=== PATIENT | female | born 1995 | race Caucasian/White ===

== ENCOUNTER 2022-12-30 16:38 | Emergency (ER) | payer OTHER ==
[~2022-12-30] VITALS: Ht 162.6 cm; Wt 79.4 kg
[2022-12-30 17:08] VITALS: BP 113/82; PULSE 72; RESP 16; TEMP 97; O2SAT 99
[2022-12-30] MEDS ORDERED: NACL 0.9% 1,000 ML IV ONE (17:45)
[2022-12-30] MEDS ORDERED: ONDANSETRON 4 MG/2 ML VIAL IVP ONE (17:45)
[2022-12-30 17:59] LABS: BASOPHILS % (AUTO) 0.2 % (0.0-2.0); EOSINOPHILS % (AUTO) 0.2 % (0.0-4.0); HEMATOCRIT 41.8 % (36-48); HEMOGLOBIN 14.2 g/dL (12.0-16.0); LYMPHOCYTES # (AUTO) 1.5 K/uL (2.5-16.5); LYMPHOCYTES % (AUTO) 17.4 % (20.5-51.1); MEAN CORPUSCULAR HEMOGLOBIN 30 pg (27-31); MEAN CORPUSCULAR HGB CONC 34 g/dL (33-37); MEAN CORPUSCULAR VOLUME 88.8 fL (80-94); MONOCYTES # (AUTO) 0.3 K/uL (0.8-1.0); MONOCYTES % (AUTO) 3.5 % (1.7-9.3); NEUTROPHILS # (AUTO) 6.6 K/uL (1.8-7.7); NEUTROPHILS % (AUTO) 78.7 % (42.2-75.2); PLATELET COUNT (AUTO) 224 K/uL (140-450); RED BLOOD CELL COUNT(AUTO) 4.71 MIL/uL (4.20-5.40); RED CELL DISTRIBUTION WIDTH 13.4 % (11.6-13.7); WHITE BLOOD COUNT (AUTO) 8.4 K/uL (4.8-10.8)
[2022-12-30 18:10] LABS: ALBUMIN 4.5 g/dL (3.4-5.0); ANION GAP 15.1 (8-16); CARBON DIOXIDE 30.9 mmol/L (21-32); CREATININE 0.8 mg/dL (0.6-1.3); TOTAL BILIRUBIN 0.4 mg/dL (0.0-1.0); TOTAL PROTEIN, SERUM 8.7 g/dL (6.4-8.2)
[2022-12-30 18:32] LABS: APPEARANCE,URINE CLEAR (CLEAR); BILIRUBIN,URINE NEGATIVE (NEGATIVE); BLOOD, URINE TRACE-I (NEGATIVE); COLOR,URINE YELLOW (YELLOW); LEUKOCYTE ESTERASE ,URINE NEGATIVE (NEGATIVE); NITRITE, URINE NEGATIVE (NEGATIVE); PH,URINE >=9.0 (5.0-9.0); PROTEIN,URINE 2+ (NEGATIVE); UGLUCOSE NEGATIVE (NEGATIVE); UROBILINOGEN,URINE 0.2 EU/dL (0.2 - 1)
[2022-12-30 18:43] LABS: BACTERIA,URINE 1+ /HPF (None Seen); WBC,URINE 0-5 /HPF (0-5)
[2022-12-30 18:44] LABS: SQUAMOUS EPITHELIAL CELL,UR 4-10 (MOD) /LPF (0-3 (FEW))
[2022-12-30] MEDS ORDERED: ONDA-188 SL (19:31)
[2022-12-30 20:01] VITALS: BP 113/82; PULSE 72; RESP 16; TEMP 97; O2SAT 99
== END 2022-12-30 20:02 | disposition home or self-care (01) ==
LOC: MED 16:38
DX: R11.10 Vomiting, unspecified (principal); E86.0 Dehydration; R10.13 Epigastric pain; Z79.899 Other long term (current) drug therapy
CPT/HCPCS: 36415; 80053; 81001; 81025; 83690; 85025; 96361; 96374; 99283; J2405; J7030

== ENCOUNTER 2023-06-16 03:44 | Emergency (ER) | payer OTHER ==
[~2023-06-16] VITALS: Ht 160 cm; Wt 78.5 kg
[~2023-06-16 03:44] MED LIST: ONDA-188 SL
[2023-06-16 04:08] VITALS: BP 102/70; PULSE 80; RESP 16; TEMP 97.6; O2SAT 99
[2023-06-16] MEDS ORDERED: DEXTROSE 50% 50 ML SYR IVP ONE (04:55)
== END 2023-06-16 05:00 | disposition left against medical advice (07) ==
LOC: MED 03:44
DX: E86.0 Dehydration (principal); Z53.21 Procedure and treatment not carried out due to patient leaving prior to being seen by health care provider
CPT/HCPCS: 99281